=== PATIENT | female | born 1995 | race Caucasian/White ===

== ENCOUNTER 2020-05-19 10:35 | Inpatient (IN) | payer BC ==
[2020-05-19] MEDS ORDERED: Sodium Chloride 0.9% 10 ML Syringe FLUSH PRN (11:54)
[2020-05-19] MEDS ORDERED: Calcium Carbonate 500 MG Tab.Chew PO PRN (11:54)
[2020-05-19] MEDS ORDERED: Ondansetron 4 MG/2 ML SDV IV PRN (11:54)
--- NOTE | 2020-05-19 12:02 | PCM.LDHP ---
L&D History of Present Illness - General Date of Service: 05/19/20 Admit Problem/Dx: Patient Status Order with Admit Dx/Problem 05/19/20 11:55 Patient Status [ADT] Routine Admission Diagnosis/Problem Admission Diagnosis/Problem Term Source of Information: Patient History Limitations: Reports: No Limitations - History of Present Illness Introduction:: 05/19/20 Leida is a 24 yo at 41 1/7 weeks who presents today for SROM of clear fluid at home at 0915. She had a BPP yesterday that was 10/02 with a reactive NST for 12/04. Given her being 41 weeks and having minimal variability for the first part of the strip with an unfavorable cervix we sent her to OB for 50 mcg vaginal Cytotec last evening. She was monitored for 4 hours and then discharged. After SROM today at home she started mitra at 1000. She has had an uncomplicated . She is GBS positive. Other labs: RPR/HIV/hep B/C all non reactive, rubella immune, O positive blood type. Timing/Duration: Reports: minutes: (5-6) Location, : Reports: Abdomen, Pelvic Quality: Reports: Pressure Severity: Moderate Improves with: Reports: None Worsens with: Reports: None Associated Symptoms: Reports: vaginal fluid. Denies: vaginal bleeding - Related Data Allergies/Adverse Reactions: Allergies Allergy/AdvReac Type Severity Reaction Status Date / Time No Known Allergies Allergy Verified 05/18/20 16:56 Home Medications: Home Meds 168/Iron/Folic/Omega3 [One-A-Day -1 Softgel] 1 cap PO DAILY 05/18/20 [History] Past Medical History Respiratory History: Reports: Asthma [employer]TER History: Reports: : 1 Para: 0 LMP (Approximate): - Infectious Disease History Infectious Disease History: Reports: Chicken Pox, Herpes Other Infectious Disease History: cold sores - Past Surgical History Musculoskeletal Surgical History: Reports: Other (See Below) Other Musculoskeletal Surgeries/Procedures:: rotator cuff tear repair;. Rt tib/fib fx Social & Family History - Family History Family Medical History: No Pertinent Family History H&P Review of Systems - Review of Systems: Review Of Systems: See Below General: Reports: No Symptoms HEENT: Reports: No Symptoms Pulmonary: Reports: No Symptoms Cardiovascular: Reports: No Symptoms Gastrointestinal: Reports: No Symptoms Genitourinary: Reports: No Symptoms Musculoskeletal: Reports: No Symptoms Skin: Reports: No Symptoms Psychiatric: Reports: No Symptoms Neurological: Reports: No Symptoms Hematologic/Lymphatic: Reports: No Symptoms Immunologic: Reports: No Symptoms L&D Exam - Exam Exam: See Below - OB Specific Contraction Intensity: Moderate Movement: Active Heart Tones: Present Heart Rate (FHR) Variability: Moderate (6-25 bmp) Presentation: Vertex Estimated Weight: 8.5 lbs - Gerber Score Gerber Score Cervix Position: Posterior Gerber Score Consistency: Medium Gerber Score Effacement: 31-50% Gerber Score Dilation: 1-2 cm Gerber Score 's Station: -2 Gerber Score Total: 4 - Exam General: Alert, Oriented HEENT: PERRLA, Conjunctiva Clear, Hearing Intact, Mucosa Moist & [place], Normal Nasal Septum, Pupils Equal, Pupils Reactive Neck: Supple, Trachea Midline Lungs: Clear to Auscultation, Normal Respiratory Effort Cardiovascular: Regular Rate, Regular Rhythm GI/Abdominal Exam: Normal Bowel Sounds, Soft, Pelvis Stable Genitourinary: Normal external exam, Cervical dilitation, Enlarged uterus. No: Vaginal bleeding Back Exam: Normal Inspection, Full Range of Motion Extremities: Normal Inspection, Normal Range of Motion, Non-Tender, No Pedal Edema Skin: Warm, Dry, Intact Neurological: Cranial Nerves Intact, Reflexes Equal Bilateral Psychiatric: Alert, Normal Affect, Normal Mood - Patient Data Lab Results Last 24 hrs: Laboratory Results - last 24 hr 05/19/20 05/19/20 Range/Units 10:57 10:57 Urine Color Yellow (YELLOW) Urine Appearance Slightly cloudy A (CLEAR) Urine pH 7.0 (5.0-8.0) Ur Specific [place] 1.025 (1.008-1.030) Urine Protein Negative (NEGATIVE) mg/dL Urine Glucose (UA) Negative (NEGATIVE) mg/dL Urine Ketones Negative (NEGATIVE) mg/dL Urine Occult Blood Negative (NEGATIVE) Urine Nitrite Negative (NEGATIVE) Urine Bilirubin Negative (NEGATIVE) Urine Urobilinogen 0.2 (0.2-1.0) EU/dL Ur Leukocyte Esterase Negative (NEGATIVE) Urine RBC Not seen (0-5) Urine WBC 0-5 (0-5) Ur Epithelial Cells Moderate Amorphous Sediment Not seen Urine Bacteria Few Urine Mucus Many Membrane Rupture Positive H (NEGATIVE) - Problem List (1) Group B streptococcal infection SNOMED Code(s): 216499150 ICD Code: A49.1 - STREPTOCOCCAL INFECTION, UNSPECIFIED SITE Status: Acute Current Visit: Yes (2) Term SNOMED Code(s): 08214256 ICD Code: Z34.90 - ENCNTR FOR SUPRVSN OF NORMAL , UNSP, UNSP TRIMESTER Status: Acute Current Visit: Yes Problem List Initiated/Reviewed/Updated: Yes Orders Last 24hrs: Active Orders 24 hr Category Date Time Status Patient Status [ADT] Routine ADT 05/19/20 11:55 Ordered Communication Order [RC] ASDIRECTED Care 05/19/20 11:55 Ordered Heart Tones [RC] PER UNIT ROUTINE Care 05/19/20 11:55 Ordered Notify Provider Vital Signs [RC] PRN Care 05/19/20 11:55 Ordered Notify Provider [RC] PRN Care 05/19/20 11:55 Ordered OB Check [OM.PC] Click to Edit Care 05/19/20 10:41 Ordered Up ad [place]elia [RC] ASDIRECTED Care 05/19/20 11:54 Ordered VTE/DVT Education [RC] Click to Edit Care 05/19/20 11:56 Ordered Vital Signs [RC] PER UNIT ROUTINE Care 05/19/20 11:55 Ordered Regular Diet [DIET] Diet 05/19/20 Breakfast Ordered CBC W/O DIFF,HEMOGRAM [HEME] Routine Lab 05/19/20 11:54 Ordered Calcium Carbonate [Tums] Med 05/19/20 11:54 Ordered 1,000 mg PO Q2HR PRN Ondansetron [Zofran] Med 05/19/20 11:54 Ordered 4 mg IV Q4H PRN Sodium Chloride 0.9% [Saline Flush] Med 05/19/20 11:54 Ordered 10 ml FLUSH ASDIRECTED PRN miSOPROStoL [Cytotec] Med 05/19/20 12:15 Once 25 mcg PO ONETIME ONE DVT/VTE Prophylaxis Reflex [OM.PC] Routine Oth 05/19/20 11:54 Ordered Saline Lock Insert [OM.PC] Routine Oth 05/19/20 11:55 Ordered Resuscitation Status Routine Resus Stat 05/19/20 11:54 Ordered Medication Orders Calcium Carbonate/Glycine (Calcium Carbonate 500 Mg Tab.Chew) 1,000 mg PO Q2HR PRN PRN Reason: Indigestion Misoprostol (Misoprostol 25 Mcg (1/4 Of 100 Mcg) Tab) 25 mcg PO ONETIME ONE Stop: 05/19/20 12:16 Ondansetron HCl (Ondansetron 4 Mg/2 Ml Sdv) 4 mg IV Q4H PRN PRN Reason: Nausea/Vomiting Sodium Chloride (Sodium Chloride 0.9% 10 Ml Syringe) 10 ml FLUSH ASDIRECTED PRN PRN Reason: Keep Vein Open Assessment/Plan Comment:: 05/19/20 Assessment: Admit to L & D for SROM and early labor Cervix very posterior, nursing unable to reach Fluid clear at 41 1/7 with testing yesterday 12/04 GBS positive Plan: Limit cervical exams due to GBS Oral cytotec 25 mcg every two hours if needed based on monitoring strip Anticipate Nitrous oxide vs epidural Monitoring as needed with cytotec, otherwise intermittent
[2020-05-19] MEDS ORDERED: Misoprostol 25 MCG (1/4 of 100 MCG) Tab PO ONE ×2 (12:15→14:42)
[2020-05-19] MEDS ORDERED: Penicillin G Potassium 5 MILLUNITS in Sodium Chloride 0.9% 50 ML IV ONE (12:30)
--- NOTE | 2020-05-19 14:48 | PCM.PNLD ---
Labor Progress Note - VS & Meds Vital Signs: Last Vital Signs Temp 35.7 C L 05/19/20 14:30 Pulse 75 05/19/20 14:30 Resp 16 05/19/20 14:30 BP 129/77 05/19/20 14:30 Pulse Ox 98 05/19/20 14:30 Active Medications: Current Medications Calcium Carbonate/Glycine (Calcium Carbonate 500 Mg Tab.Chew) 1,000 mg PO Q2H PRN PRN Reason: Indigestion Penicillin G Potassium 2.5 (millunits/ Sodium Chloride) 50 mls @ 100 mls/hr IV Q4H JOSE Misoprostol (Misoprostol 25 Mcg (1/4 Of 100 Mcg) Tab) 25 mcg PO ONETIME ONE Stop: 05/19/20 14:43 Ondansetron HCl (Ondansetron 4 Mg/2 Ml Sdv) 4 mg IV Q4H PRN PRN Reason: Nausea/Vomiting Sodium Chloride (Sodium Chloride 0.9% 10 Ml Syringe) 10 ml FLUSH ASDIRECTED PRN PRN Reason: Keep Vein Open Discontinued Medications Penicillin G Potassium 5 (millunits/ Sodium Chloride) 50 mls @ 100 mls/hr IV ONETIME ONE Stop: 05/19/20 12:59 Last Admin: 05/19/20 12:35 Dose: 100 mls/hr Documented by: Misoprostol (Misoprostol 25 Mcg (1/4 Of 100 Mcg) Tab) 25 mcg PO ONETIME ONE Stop: 05/19/20 12:16 Last Admin: 05/19/20 12:05 Dose: 25 mcg Documented by: - Uterine Contractions Uterine Monitoring Mode: External [place] Contraction Frequency (min): 3-5 Contraction Duration (sec): 100-110 Contraction Intensity: Mild to Moderate Uterine Resting Tone: Soft - Monitoring Monitor Mode: External Ultrasound Heart Rate (FHR) Baseline: 140 Heart Rate (FHR) Variability: Moderate (6-25 bmp) (minimal at times, moderate at times) Accelerations: Present, 15x15 Decelerations: None Strip Review: Category I - Vaginal Exam Dilation (cm): 2 Effacement (Percent): 80 Station: -1 Cervical Position: Posterior Sterile Vaginal Exam Performed By: Sia Jasso - Labor Progress (Free Text) Labor Progress: 05/19/20 25 mcg cytotec given orally around noon. Contractions still spaced out every 5 minutes or so but do seem stronger to patient. SVE done and although cervix is still very posterior SVE was /-1. Clear fluid noted. Patient agrees to another 25 mcg oral cytotec to help ripen cervix and progress things. She is comfortable on the ball.
--- NOTE | 2020-05-19 16:34 | PCM.SN.2 ---
- Free Text/Narrative Note: 05/19/20 Contractions are getting stronger for the patient. She is currently in the tub which makes the contractions comfortable. No SVE done. Continue to monitor intermittently. Category 1 tracing.
[2020-05-19] MEDS: Penicillin G Potassium 2.5 MILLUNITS in Sodium Chloride 0.9% 50 ML IV SCH ×2 (16:35→19:51)
--- NOTE | 2020-05-19 19:08 | PCM.PNLD ---
Labor Progress Note - VS & Meds Vital Signs: Last Vital Signs Temp 35.7 C L 05/19/20 14:30 Pulse 86 05/19/20 16:00 Resp 16 05/19/20 14:30 BP 131/83 05/19/20 16:00 Pulse Ox 98 05/19/20 14:30 Active Medications: Current Medications Calcium Carbonate/Glycine (Calcium Carbonate 500 Mg Tab.Chew) 1,000 mg PO Q2H PRN PRN Reason: Indigestion Penicillin G Potassium 2.5 (millunits/ Sodium Chloride) 50 mls @ 100 mls/hr IV Q4H JOSE Last Admin: 05/19/20 16:35 Dose: 100 mls/hr Documented by: Ondansetron HCl (Ondansetron 4 Mg/2 Ml Sdv) 4 mg IV Q4H PRN PRN Reason: Nausea/Vomiting Sodium Chloride (Sodium Chloride 0.9% 10 Ml Syringe) 10 ml FLUSH ASDIRECTED PRN PRN Reason: Keep Vein Open Discontinued Medications Penicillin G Potassium 5 (millunits/ Sodium Chloride) 50 mls @ 100 mls/hr IV ONETIME ONE Stop: 05/19/20 12:59 Last Admin: 05/19/20 12:35 Dose: 100 mls/hr Documented by: Misoprostol (Misoprostol 25 Mcg (1/4 Of 100 Mcg) Tab) 25 mcg PO ONETIME ONE Stop: 05/19/20 12:16 Last Admin: 05/19/20 12:05 Dose: 25 mcg Documented by: Misoprostol (Misoprostol 25 Mcg (1/4 Of 100 Mcg) Tab) 25 mcg PO ONETIME ONE Stop: 05/19/20 14:43 Last Admin: 05/19/20 14:52 Dose: 25 mcg Documented by: - Uterine Contractions Uterine Monitoring Mode: External [place] Contraction Frequency (min): 3-6 Contraction Duration (sec): 90-140 Contraction Intensity: Moderate Uterine Resting Tone: Soft - Monitoring Monitor Mode: External Ultrasound Heart Rate (FHR) Baseline: 140 Heart Rate (FHR) Variability: Moderate (6-25 bmp) (minimal at times, moderate at times) Accelerations: Present, 15x15 Decelerations: None Strip Review: Category I - Vaginal Exam Dilation (cm): 3 Effacement (Percent): 80 Station: 0 Cervical Position: Posterior Sterile Vaginal Exam Performed By: Sia Jasso - Labor Progress (Free Text) Labor Progress: 05/19/20 Patient has made slow progress today but contractions are feeling stronger to her now. SVE . Contractions currently every 3-6 minutes, very strong. Risks of expectant management discussed including risk for infection the longer there is ROM. We discussed oral cytotec again and IV Pitocin titrate. Patient would like to avoid all medications if possible and we have agreed that we will recheck her cervix at 9 pm and if slow to no change again she agrees to pitocin augmentation. She is afebrile.
[2020-05-20] MEDS ORDERED: ePHEDrine 50 MG/ML SDV IVPUSH PRN (00:16)
[2020-05-20] MEDS ORDERED: Naloxone 0.4 MG/ML SDV IVPUSH PRN ×2 (00:16→08:00)
[2020-05-20] MEDS ORDERED: Sodium Chloride 0.9% 10 ML Syringe FLUSH PRN (00:16)
[2020-05-20] MEDS ORDERED: diphenhydrAMINE 50 MG/ML SDV IVPUSH PRN ×2 (00:16)
[2020-05-20] MEDS ORDERED: Sodium Chloride 0.9% 1,000 ML IV ONE (00:24)
[2020-05-20] MEDS ORDERED: Ropivacaine 100 ML ONE (00:37)
[2020-05-20] MEDS: Penicillin G Potassium 2.5 MILLUNITS in Sodium Chloride 0.9% 50 ML IV SCH ×3 (01:42→10:56)
--- NOTE | 2020-05-20 03:24 | ANES ---
DATE OF SERVICE: 05/20/2020 TIME: 39. INDICATIONS: I was called to the OB Department to evaluate Ms. [place] for a labor epidural. This is her 1st baby. She is approximately 5 cm and in active labor. Risks and benefits of the procedure were explained to the patient. She wished to proceed with labor epidural. TECHNIQUE: She was placed in a sitting position. Her back was prepped x3 with Betadine, 1% lidocaine skin local was used. The epidural was placed at L3-4 using a 17-gauge Tuohy needle in loss of resistance technique. The epidural had very good feel throughout, and the epidural space was easily identified. There was negative CSF, negative blood, and negative paresthesias noted. Therefore, catheter was threaded to 16 cm at the skin. There was negative CSF, negative blood, and negative paresthesias with the catheter. A 1.5% lidocaine with epinephrine test dose was given, and this test dose was negative. The catheter was then secured with Tegaderm and tape, and the patient was placed in a supine position. A 0.2% ropivacaine bolus of 10 mL was given. She had very good relief from the bolus, and her vital signs remained stable. Therefore 0.2% ropivacaine drip was started at 12 mL/h. The patient tolerated the procedure very nicely. Her vital signs remained stable throughout the procedure. Nurse was with me for the entire procedure. There were no anesthesia complications noted, and we will continue to monitor her throughout her labor and delivery. Lopez Thakur CRNA /[id number]
--- NOTE | 2020-05-20 04:29 | PCM.PNLD ---
Labor Progress Note - VS & Meds Vital Signs: Last Vital Signs Temp 36.7 C 05/20/20 00:30 Pulse 86 05/20/20 01:40 Resp 18 05/20/20 01:40 BP 123/70 05/20/20 01:40 Pulse Ox 97 05/20/20 01:40 Active Medications: Current Medications Calcium Carbonate/Glycine (Calcium Carbonate 500 Mg Tab.Chew) 1,000 mg PO Q2H PRN PRN Reason: Indigestion Diphenhydramine HCl (Diphenhydramine 50 Mg/Ml Sdv) 25 mg IVPUSH Q6H PRN PRN Reason: Itching Diphenhydramine HCl (Diphenhydramine 50 Mg/Ml Sdv) 50 mg IVPUSH Q6H PRN PRN Reason: Itching Ephedrine Sulfate (Ephedrine 50 Mg/Ml Sdv) 10 mg IVPUSH ASDIRECTED PRN PRN Reason: Hypotension Penicillin G Potassium 2.5 (millunits/ Sodium Chloride) 50 mls @ 100 mls/hr IV Q4H [facility] Last Admin: 05/20/20 01:42 Dose: 100 mls/hr Documented by: Oxytocin/Sodium Chloride (Pitocin In Ns 20 Units/1,000 Ml) 20 unit in 1,000 mls @ 6 mls/hr IV TITRATE [facility]; Protocol Last Titration: 05/20/20 03:00 Dose: 4 munits/min, 12 mls/hr Documented by: Naloxone HCl (Naloxone 0.4 Mg/Ml Sdv) 0.1 mg IVPUSH ASDIRECTED PRN PRN Reason: Oversedation Ondansetron HCl (Ondansetron 4 Mg/2 Ml Sdv) 4 mg IV Q4H PRN PRN Reason: Nausea/Vomiting Sodium Chloride (Sodium Chloride 0.9% 10 Ml Syringe) 10 ml FLUSH ASDIRECTED PRN PRN Reason: Keep Vein Open Sodium Chloride (Sodium Chloride 0.9% 10 Ml Syringe) 10 ml FLUSH ASDIRECTED PRN PRN Reason: Keep Vein Open Discontinued Medications Penicillin G Potassium 5 (millunits/ Sodium Chloride) 50 mls @ 100 mls/hr IV ONETIME ONE Stop: 05/19/20 12:59 Last Admin: 05/19/20 12:35 Dose: 100 mls/hr Documented by: Sodium Chloride (Normal Saline) 1,000 mls @ 999 mls/hr IV .BOLUS ONE Stop: 05/20/20 01:24 Last Admin: 05/20/20 01:43 Dose: 999 mls/hr Documented by: Ropivacaine (Naropin 0.2%) Confirm Administered Dose 100 mls @ as directed .ROUTE .STK-MED ONE Stop: 05/20/20 00:38 Misoprostol (Misoprostol 25 Mcg (1/4 Of 100 Mcg) Tab) 25 mcg PO ONETIME ONE Stop: 05/19/20 12:16 Last Admin: 05/19/20 12:05 Dose: 25 mcg Documented by: Misoprostol (Misoprostol 25 Mcg (1/4 Of 100 Mcg) Tab) 25 mcg PO ONETIME ONE Stop: 05/19/20 14:43 Last Admin: 05/19/20 14:52 Dose: 25 mcg Documented by: - Uterine Contractions Uterine Monitoring Mode: External [place] Contraction Frequency (min): 3-5 Contraction Duration (sec): 60-80 Contraction Intensity: Strong Uterine Resting Tone: Soft - Monitoring Monitor Mode: External Ultrasound Heart Rate (FHR) Baseline: 120 Heart Rate (FHR) Variability: Moderate (6-25 bmp) (minimal at times, moderate at times) Accelerations: Present, 15x15 Decelerations: None Strip Review: Category I - Vaginal Exam Dilation (cm): 7-8 Effacement (Percent): 90 Station: 0 Cervical Position: Midposition Sterile Vaginal Exam Performed By: Gabbie Bran - Labor Progress (Free Text) Labor Progress: 05/20/20 S: Patient has done wonderful laboring. Pitocin was started around 2200 to augment labor due to slow cervical change, contractions being every 4-6 minutes, and being ruptured >12 hours with GBS. She used nitrous oxide on and off for a while for pain and the tub. Around midnight she was 5 cm and requested an epidural. She has good movement of her legs and good pain control. O: SVE per nursing at 0330 7-8/90/0. Contractions are about every 5 minutes currently but are nice and strong. Category 1 tracing continues. Pitocin currently at 4 mu, will increase again as long as baby looks good to get contractions closer together. A: Patient and baby tolerating labor well. Patient remains afebrile and there are no s/s of infection. P: Anticipate . May let patient labor down some if baby tolerates it. Continue to turn and use peanut ball. Will try to get patient a nap now, she has not slept all night.
--- NOTE | 2020-05-20 07:21 | PCM.PNLD ---
Labor Progress Note - VS & Meds Vital Signs: Last Vital Signs Temp 36.2 C 05/20/20 05:30 Pulse 95 05/20/20 05:30 Resp 16 05/20/20 05:30 BP 119/76 05/20/20 05:30 Pulse Ox 98 05/20/20 05:30 Active Medications: Current Medications Calcium Carbonate/Glycine (Calcium Carbonate 500 Mg Tab.Chew) 1,000 mg PO Q2H PRN PRN Reason: Indigestion Diphenhydramine HCl (Diphenhydramine 50 Mg/Ml Sdv) 25 mg IVPUSH Q6H PRN PRN Reason: Itching Diphenhydramine HCl (Diphenhydramine 50 Mg/Ml Sdv) 50 mg IVPUSH Q6H PRN PRN Reason: Itching Ephedrine Sulfate (Ephedrine 50 Mg/Ml Sdv) 10 mg IVPUSH ASDIRECTED PRN PRN Reason: Hypotension Penicillin G Potassium 2.5 (millunits/ Sodium Chloride) 50 mls @ 100 mls/hr IV Q4H [facility] Last Admin: 05/20/20 05:48 Dose: 100 mls/hr Documented by: Oxytocin/Sodium Chloride (Pitocin In Ns 20 Units/1,000 Ml) 20 unit in 1,000 mls @ 6 mls/hr IV TITRATE [facility]; Protocol Last Titration: 05/20/20 06:00 Dose: 6 munits/min, 18 mls/hr Documented by: Naloxone HCl (Naloxone 0.4 Mg/Ml Sdv) 0.1 mg IVPUSH ASDIRECTED PRN PRN Reason: Oversedation Ondansetron HCl (Ondansetron 4 Mg/2 Ml Sdv) 4 mg IV Q4H PRN PRN Reason: Nausea/Vomiting Sodium Chloride (Sodium Chloride 0.9% 10 Ml Syringe) 10 ml FLUSH ASDIRECTED PRN PRN Reason: Keep Vein Open Discontinued Medications Penicillin G Potassium 5 (millunits/ Sodium Chloride) 50 mls @ 100 mls/hr IV ONETIME ONE Stop: 05/19/20 12:59 Last Admin: 05/19/20 12:35 Dose: 100 mls/hr Documented by: Sodium Chloride (Normal Saline) 1,000 mls @ 999 mls/hr IV .BOLUS ONE Stop: 05/20/20 01:24 Last Admin: 05/20/20 01:43 Dose: 999 mls/hr Documented by: Ropivacaine (Naropin 0.2%) Confirm Administered Dose 100 mls @ as directed .ROUTE .STK-MED ONE Stop: 05/20/20 00:38 Misoprostol (Misoprostol 25 Mcg (1/4 Of 100 Mcg) Tab) 25 mcg PO ONETIME ONE Stop: 05/19/20 12:16 Last Admin: 05/19/20 12:05 Dose: 25 mcg Documented by: Misoprostol (Misoprostol 25 Mcg (1/4 Of 100 Mcg) Tab) 25 mcg PO ONETIME ONE Stop: 05/19/20 14:43 Last Admin: 05/19/20 14:52 Dose: 25 mcg Documented by: Sodium Chloride (Sodium Chloride 0.9% 10 Ml Syringe) 10 ml FLUSH ASDIRECTED PRN PRN Reason: Keep Vein Open - Uterine Contractions Uterine Monitoring Mode: External [place] Contraction Frequency (min): 60-80 Contraction Duration (sec): 3-5 Contraction Intensity: Moderate Uterine Resting Tone: Soft - Monitoring Monitor Mode: External Ultrasound Heart Rate (FHR) Baseline: 120 Heart Rate (FHR) Variability: Moderate (6-25 bmp) (minimal at times, moderate at times) Accelerations: Present, 15x15 Decelerations: None Strip Review: Category I - Vaginal Exam Dilation (cm): Rim 9.5 Effacement (Percent): 100 Station: 1 Cervical Position: Anterior Sterile Vaginal Exam Performed By: Sia Jasso - Labor Progress (Free Text) Labor Progress: 05/20/20 Labor progressing slowly. Category 1 tracing although baby is minimal for short times without decelerations, likely sleepy periods. 250 ml fluid bolus now and patient is sipping on juice. Rolling side to side with peanut ball. Going up on pitocin by 1 mu when able depending on variability of baby and overall reactivity of strip. SVE 9.5/100/+1.
[2020-05-20] MEDS ORDERED: Sodium Chloride 0.9% 250 ML IV ONE (07:30)
[2020-05-20] MEDS ORDERED: Sodium Chloride 0.9% 250 ML IV SCH (07:30)
[2020-05-20] MEDS ORDERED: Ropivacaine 100 ML EPIDUR SCH ×2 (08:00)
[2020-05-20] MEDS ORDERED: Misoprostol 200 MCG Tab ONE (09:48)
[2020-05-20] MEDS ORDERED: Methylergonovine 0.2 MG/1 ML Amp ONE ×2 (09:49→09:50)
[2020-05-20] MEDS ORDERED: Carboprost Tromethamine 250 MCG/1 ML Amp ONE (09:50)
[2020-05-20] MEDS ORDERED: Lidocaine 1% 50 ML MDV ONE (10:00)
[2020-05-20] MEDS ORDERED: Ibuprofen 200 MG Tab, 24 Tab Bulk Bottle PO PRN (10:12)
[2020-05-20] MEDS ORDERED: Acetaminophen 325 MG Tab, 50 Tab Bulk Bottle PO PRN (10:12)
[2020-05-20] MEDS ORDERED: Misoprostol 200 MCG Tab RECTAL STA (10:17)
[2020-05-20] MEDS ORDERED: Methylergonovine 0.2 MG/1 ML Amp IM STA (10:18)
[2020-05-20] MEDS ORDERED: Carboprost Tromethamine 250 MCG/1 ML Amp IM ONE (10:18)
[2020-05-20] MEDS ORDERED: Lidocaine 1% 50 ML MDV INJECT STA (10:19)
[2020-05-20] MEDS: Misoprostol 200 MCG Tab ONE ×2 (10:56→11:00)
--- NOTE | 2020-05-20 12:54 | PCM.DEL ---
L & D Note - General Info Date of Service: 05/20/20 Mother's Due Date: 05/11/20 - Delivery Note Labor: Augmented by Oxytocin Cervical Ripening Method: Misoprostil Delivery Outcome: Livebirth Infant Delivery Method: Spontaneous Vaginal Delivery-Single Delivery Mode: Spontaneous Presentation: Right Occiput Anterior (KAVON) Nuchal Cord: Present (tight, delivered summersault) Anesthesia Type: Epidural, Nitrous Oxide Anesthetic: Lidocaine (Xylocaine) 1% Plain Local Anesthetic Volume: 5cc Amniotic Fluid Description: Clear Episiotomy Type: Midline Laceration: None. No: Cervical, Vaginal Suture type: Vicryl Suture size: 3-0 Placenta: Intact, Spontaneous Cord: 3 Vessels Estimated Blood Loss: 700 Resuscitation Needed: No [place]: Stimulated Provider: Sia Jasso Score 1 min: 9 Score 5 min: 10 Post Delivery Events: Hemorrhage Second Stage Interventions: Reports: Second Nurse Assessed Progress of Descent, Second Nurse Reviewed Contraction Pattern, Second Nurse Reviewed Heart Tones, Encouragement Given, Laboring Down, Pushing Effectively, Pushing, Feet in Foot Rests, Pushing, Knee Chest Position, Pushing, Left Side, Pushing, McRobert's Position, Pushing, Pulls Own Legs Back, Pushing, Right Side Delivery Comments (Free Text/Narrative):: 05/20/20 24 yo G1 now P1 delivered viable male infant at 0944 this morning. She was given vaginal cytotec 05/18/20 50 mcg one dose and sent home. She had SROM of clear fluid at home yesterday at 0915. She was mitra on her own but they were not strong. She was given two doses of oral cytotec for ripening. She made slow progress and was given some oxytocin to augment labor around 2200 last evening. She recieved an epidural, she had used nitrous oxide and the tub before that. Category 1 tracing through out other than decelerations with pushing that returned to baseline. After pushing for nearly two hours she had baby crowned but could not push past her restrictive perineum and heart tones were non reassuring. She agreed to an episiotomy and a midline was cut, this did not extend. Two contractions later she delivered a head. There was a night nuchal cord and he was delivered summersaulted through, unable to reduce. He cried spontaneously and was placed on mothers chest. Apgars 9, 10. She began bleeding quite heavy right after delivery. Placenta was delivered intact spontaneously, 3 vessel cord, but fundus remained boggy and bleeding was heavy. Pitocin IV done and fundal massage along with straight urinary catheter to empty bladder. Upon inspection the bleeding was certainly uterine and not from any tears so a few clots were removed from the cervix and then rectal Cytotec was given. Bleeding continued and so Methergine IM was given. Again, bleeding was continuing and so several minutes later Hemabate was given. She continued to be somewhat boggy but firms nicely with massage, bleeding stopped. FF now with light bleeding. No vaginal or cervical lacerations. Episiotomy was repaired with 3-0 and 4-0 vicryl. Baby boy skin to skin with mom, delayed cord clamping for 1 minute. Both mom and baby are in stable condition. EBL 700 ml. Stages of labor: 1: 2545-6368 2: 4335-7936 3: 6064-3208 Induction Criteria - Augmentation Estimated Pelvis: Reports: Adequate Weight Estimated:: Reports: AGA Estimated Weight if LGA: 240.971 g Reassuring Monitoring Strip: Yes Absence of Tachy Systole: Yes - General Info Date of Service: 05/20/20 Functional Status: Reports: Pain Controlled - Review of Systems General: Reports: Fatigue HEENT: Reports: No Symptoms Pulmonary: Reports: No Symptoms Cardiovascular: Reports: No Symptoms Gastrointestinal: Reports: No Symptoms Genitourinary: Reports: No Symptoms Musculoskeletal: Reports: No Symptoms Skin: Reports: No Symptoms Neurological: Reports: No Symptoms Psychiatric: Reports: No Symptoms - Patient Data Vitals - Most Recent: Last Vital Signs Temp 35.7 C L 05/20/20 11:58 Pulse 87 05/20/20 11:58 Resp 18 05/20/20 11:58 BP 137/82 05/20/20 11:58 Pulse Ox 99 05/20/20 11:58 Weight - Most Recent: 93.44 kg I&O - Last 24 Hours: Intake & Output 05/19/20 05/20/20 05/20/20 22:59 06:59 14:59 Intake Total 50 Output Total 850 Balance 50 -850 Lab Results Last 24 Hours: Laboratory Results - last 24 hr 05/19/20 Range/Units 18:05 SARS CoV-2 RNA Rapid BESSY Negative Med Orders - Current: Current Medications Acetaminophen (Acetaminophen 325 Mg Tab, 50 Tab Bulk Bottle) 325 - 650 mg PO Q4H PRN PRN Reason: Pain Last Admin: 05/20/20 10:52 Dose: 650 mg Documented by: Calcium Carbonate/Glycine (Calcium Carbonate 500 Mg Tab.Chew) 1,000 mg PO Q2H PRN PRN Reason: Indigestion Diphenhydramine HCl (Diphenhydramine 50 Mg/Ml Sdv) 25 mg IVPUSH Q6H PRN PRN Reason: Itching Diphenhydramine HCl (Diphenhydramine 50 Mg/Ml Sdv) 50 mg IVPUSH Q6H PRN PRN Reason: Itching Ephedrine Sulfate (Ephedrine 50 Mg/Ml Sdv) 10 mg IVPUSH ASDIRECTED PRN PRN Reason: Hypotension Oxytocin/Sodium Chloride (Pitocin In Ns 20 Units/1,000 Ml) 20 unit in 1,000 mls @ 6 mls/hr IV TITRATE JOSE; Protocol Last Titration: 05/20/20 08:12 Dose: 7 munits/min, 21 mls/hr Documented by: Ropivacaine (Naropin 0.2%) 100 mls @ 12 mls/hr EPIDUR ASDIRECTED JOSE; Protocol Last Admin: 05/20/20 08:08 Dose: 12 mls/hr, 12 mls/hr Documented by: Oxytocin/Sodium Chloride (Pitocin In Ns 20 Units/1,000 Ml) 20 unit in 1,000 mls @ 999 mls/hr IV TITRATE JOSE; Protocol Ibuprofen (Ibuprofen 200 Mg Tab, 24 Tab Bulk Bottle) 600 mg PO Q6H PRN PRN Reason: Pain Last Admin: 05/20/20 10:51 Dose: 600 mg Documented by: Naloxone HCl (Naloxone 0.4 Mg/Ml Sdv) 0.1 mg IVPUSH ASDIRECTED PRN PRN Reason: Oversedation Naloxone HCl (Naloxone 0.4 Mg/Ml Sdv) 0.1 mg IVPUSH Q5M PRN PRN Reason: IF RESP RATE LESS THAN 6 Ondansetron HCl (Ondansetron 4 Mg/2 Ml Sdv) 4 mg IV Q4H PRN PRN Reason: Nausea/Vomiting Sodium Chloride (Sodium Chloride 0.9% 10 Ml Syringe) 10 ml FLUSH ASDIRECTED PRN PRN Reason: Keep Vein Open Discontinued Medications Carboprost Tromethamine (Carboprost Tromethamine 250 Mcg/1 Ml Amp) Confirm Administered Dose 250 mcg .ROUTE .STK-MED ONE Stop: 05/20/20 09:51 Last Admin: 05/20/20 10:59 Dose: Not Given Documented by: Carboprost Tromethamine (Carboprost Tromethamine 250 Mcg/1 Ml Amp) 250 mcg IM ONETIME ONE Stop: 05/20/20 10:19 Last Admin: 05/20/20 09:55 Dose: 250 mcg Documented by: Penicillin G Potassium 5 (millunits/ Sodium Chloride) 50 mls @ 100 mls/hr IV ONETIME ONE Stop: 05/19/20 12:59 Last Admin: 05/19/20 12:35 Dose: 100 mls/hr Documented by: Penicillin G Potassium 2.5 (millunits/ Sodium Chloride) 50 mls @ 100 mls/hr IV Q4H JOSE Stop: 05/20/20 12:00 Last Admin: 05/20/20 10:56 Dose: Not Given Documented by: Sodium Chloride (Normal Saline) 1,000 mls @ 999 mls/hr IV .BOLUS ONE Stop: 05/20/20 01:24 Last Admin: 05/20/20 01:43 Dose: 999 mls/hr Documented by: Ropivacaine (Naropin 0.2%) Confirm Administered Dose 100 mls @ as directed .ROUTE .STK-MED ONE Stop: 05/20/20 00:38 Sodium Chloride (Normal Saline) 250 mls @ 250 mls/hr IV ASDIRECTED JOSE Sodium Chloride (Normal Saline) 250 mls @ 999 mls/hr IV ASDIRECTED ONE Stop: 05/20/20 07:45 Lidocaine HCl (Lidocaine 1% 50 Ml Mdv) Confirm Administered Dose 50 ml .ROUTE .STK-MED ONE Stop: 05/20/20 10:01 Last Admin: 05/20/20 11:00 Dose: Not Given Documented by: Lidocaine HCl (Lidocaine 1% 50 Ml Mdv) 50 ml INJECT NOW STA Stop: 05/20/20 10:20 Last Admin: 05/20/20 11:00 Dose: 50 ml Documented by: Methylergonovine Maleate (Methylergonovine 0.2 Mg/1 Ml Amp) Confirm Administered Dose 0.2 mg .ROUTE .STK-MED ONE Stop: 05/20/20 09:50 Last Admin: 05/20/20 10:59 Dose: Not Given Documented by: Methylergonovine Maleate (Methylergonovine 0.2 Mg/1 Ml Amp) Confirm Administered Dose 0.2 mg .ROUTE .STK-MED ONE Stop: 05/20/20 09:51 Last Admin: 05/20/20 10:59 Dose: Not Given Documented by: Methylergonovine Maleate (Methylergonovine 0.2 Mg/1 Ml Amp) 0.2 mg IM NOW STA Stop: 05/20/20 10:19 Last Admin: 05/20/20 09:51 Dose: 0.2 mg Documented by: Misoprostol (Misoprostol 25 Mcg (1/4 Of 100 Mcg) Tab) 25 mcg PO ONETIME ONE Stop: 05/19/20 12:16 Last Admin: 05/19/20 12:05 Dose: 25 mcg Documented by: Misoprostol (Misoprostol 25 Mcg (1/4 Of 100 Mcg) Tab) 25 mcg PO ONETIME ONE Stop: 05/19/20 14:43 Last Admin: 05/19/20 14:52 Dose: 25 mcg Documented by: Misoprostol (Misoprostol 200 Mcg Tab) Confirm Administered Dose 200 mcg .ROUTE .STK-MED ONE Stop: 05/20/20 09:49 Last Admin: 05/20/20 10:59 Dose: Not Given Documented by: Misoprostol (Misoprostol 200 Mcg Tab) Confirm Administered Dose 800 mcg .ROUTE .STK-MED ONE Stop: 05/20/20 09:51 Last Admin: 05/20/20 11:00 Dose: Not Given Documented by: Misoprostol (Misoprostol 200 Mcg Tab) 800 mcg RECTAL NOW STA Stop: 05/20/20 10:18 Last Admin: 05/20/20 11:00 Dose: 800 mcg Documented by: Sodium Chloride (Sodium Chloride 0.9% 10 Ml Syringe) 10 ml FLUSH ASDIRECTED PRN PRN Reason: Keep Vein Open - Exam General: Alert, Oriented HEENT: Pupils Equal, Pupils Reactive, Mucous Membr. Moist/[place] Neck: Supple Lungs: Clear to Auscultation, Normal Respiratory Effort Cardiovascular: Regular Rate, Regular Rhythm. No: Murmurs GI/Abdominal Exam: Normal Bowel Sounds, Soft, Non-Tender, No Organomegaly, No Distention, No Abnormal Bruit, No Mass, Pelvis Stable (Female) Exam: Normal External Exam, Normal Bimanual Exam, Cervical Dilata tion, Enlarged Uterus, Vaginal Bleeding Back Exam: Normal Inspection, Full Range of Motion Extremities: Normal Inspection, Normal Range of Motion, Non-Tender, No Pedal Edema, Normal Capillary Refill Skin: Warm, Dry, Intact Neurological: No New Focal Deficit Psy/Mental Status: Alert, Normal Affect, Normal Mood - Problem List & Annotations (1) Group B streptococcal infection SNOMED Code(s): 712661152 Code(s): A49.1 - STREPTOCOCCAL INFECTION, UNSPECIFIED SITE Status: Acute Current Visit: Yes (2) Term SNOMED Code(s): 00700452 Code(s): Z34.90 - ENCNTR FOR SUPRVSN OF NORMAL , UNSP, UNSP TRIMESTER Status: Acute Current Visit: Yes (3) History of episiotomy SNOMED Code(s): 877328748 Code(s): Z98.890 - OTHER SPECIFIED POSTPROCEDURAL STATES Status: Acute Current Visit: Yes (4) Del w/ 2 deg lac-unsp SNOMED Code(s): 1231975 Code(s): O70.1 - SECOND DEGREE PERINEAL LACERATION DURING DELIVERY Status: Acute Current Visit: Yes (5) Normal vaginal delivery SNOMED Code(s): 33236453, 087939146 Code(s): O80 - ENCOUNTER FOR FULL-TERM UNCOMPLICATED DELIVERY Status: Acute Current Visit: Yes (6) started SNOMED Code(s): 663315788 Code(s): KUU8655 - Status: Acute Current Visit: Yes - Problem List Review Problem List Initiated/Reviewed/Updated: Yes - My Orders Last 24 Hours: My Active Orders 05/19/20 11:54 Up ad [place] [RC] ASDIRECTED Calcium Carbonate [Tums] 1,000 mg PO Q2H PRN Ondansetron [Zofran] 4 mg IV Q4H PRN Sodium Chloride 0.9% [Saline Flush] 10 ml FLUSH ASDIRECTED PRN DVT/VTE Prophylaxis Reflex [OM.PC] Routine Resuscitation Status Routine 05/19/20 11:55 Patient Status [ADT] Routine Communication Order [RC] ASDIRECTED Heart Tones [RC] PER UNIT ROUTINE Notify Provider Vital Signs [RC] PRN Notify Provider [RC] PRN Vital Signs [RC] PER UNIT ROUTINE Saline Lock Insert [OM.PC] Routine 05/19/20 11:56 VTE/DVT Education [RC] Click to Edit 05/19/20 20:15 Oxytocin/Normal Saline [Pitocin in NS 20 Units/1,000 ML] 20 unit in 1,000 ml IV TITRATE 05/19/20 21:44 Nitrous Oxide Delivery [RC] ASDIRECTED 05/20/20 00:16 Naloxone [Narcan] 0.1 mg IVPUSH ASDIRECTED PRN diphenhydrAMINE [Benadryl] 25 mg IVPUSH Q6H PRN diphenhydrAMINE [Benadryl] 50 mg IVPUSH Q6H PRN ePHEDrine [ePHEDrine sulfate] 10 mg IVPUSH ASDIRECTED PRN 05/20/20 00:18 Communication Order [RC] ROUTINE Communication Order [RC] ROUTINE Communication Order [RC] ROUTINE Oxygen Therapy [RC] ASDIRECTED PCEA Epidural [RC] ASDIRECTED Peripheral IV Care [RC] . DIRECTED Pulse Oximetry [RC] ASDIRECTED Epidural Catheter Management [OM.PC] Routine Peripheral IV Insertion Pediatric [OM.PC] Routine 05/20/20 08:00 Naloxone [Narcan] 0.1 mg IVPUSH Q5M PRN 05/20/20 10:12 Acetaminophen [Tylenol Bulk Bottle] 325 - 650 mg PO Q4H PRN Ibuprofen [Motrin Bulk Bottle] 600 mg PO Q6H PRN 05/20/20 12:00 Oxytocin/Normal Saline [Pitocin in NS 20 Units/1,000 ML] 20 unit in 1,000 ml IV TITRATE - Assessment Assessment:: 05/20/20 with of male infant at 0944 2nd degree episiotomy repaired, no extension PP hemorrhage of EBL 700 AVSS, not dizzy Up and moving, voided - Plan Plan:: 05/19/20 Assessment: Admit to L & D for SROM and early labor Cervix very posterior, nursing unable to reach Fluid clear at 41 1/7 with testing yesterday 12/04 GBS positive Plan: Limit cervical exams due to GBS Oral cytotec 25 mcg every two hours if needed based on monitoring strip Anticipate Nitrous oxide vs epidural Monitoring as needed with cytotec, otherwise intermittent 05/20/20 Routine cares support Anticipate 48 hour stay
[2020-05-20] MEDS ORDERED: Docusate Sodium 100 MG Cap PO PRN (13:03)
[2020-05-20] MEDS ORDERED: Benzocaine 20% Top Spray 56 GM Bottle TOP ONE (13:03)
[2020-05-20] MEDS ORDERED: Witch Hazel Medicated Pads 100/Jar TOP ONE (13:03)
[2020-05-20] MEDS ORDERED: Lanolin 100% Cream 40 GM Tube TOP PRN (13:03)
[2020-05-20] MEDS ORDERED: Witch Hazel Medicated Pads 100/Jar TOP PRN (14:00)
[2020-05-20] MEDS ORDERED: Benzocaine 20% Top Spray 56 GM Bottle TOP PRN (17:00)
--- NOTE | 2020-05-21 08:50 | PCM.PNPP ---
- General Info Date of Service: 05/21/20 Functional Status: Reports: Pain Controlled - Review of Systems General: Reports: Fatigue. Denies: Fever, Weakness HEENT: Reports: No Symptoms Pulmonary: Reports: No Symptoms Cardiovascular: Reports: No Symptoms Gastrointestinal: Reports: No Symptoms Genitourinary: Reports: No Symptoms Musculoskeletal: Reports: No Symptoms Skin: Reports: No Symptoms Neurological: Reports: No Symptoms Psychiatric: Reports: No Symptoms - General Info Date of Service: 05/21/20 - Patient Data Vital Signs - Most Recent: Last Vital Signs Temp 35.2 C L 05/21/20 07:49 Pulse 83 05/21/20 07:49 Resp 18 05/21/20 07:49 BP 112/65 05/21/20 07:49 Pulse Ox 99 05/21/20 07:49 Weight - Most Recent: 93.44 kg I&O - Last 24 Hours: Intake & Output 05/20/20 05/21/20 05/21/20 22:59 06:59 14:59 Intake Total 1500 Balance 1500 Lab Results - Last 24 Hours: Laboratory Results - last 24 hr 05/20/20 05/21/20 Range/Units 16:43 07:22 WBC 23.6 H 15.4 H (4.5-11.0) K/uL RBC 3.39 3.16 L (3.30-5.50) M/uL Hgb 10.4 L D 9.5 L (12.0-15.0) g/dL Hct 31.3 L 29.8 L (36.0-48.0) % MCV 92 94 (80-98) fL MCH 31 30 (27-31) pg MCHC 33 32 (32-36) % Plt Count 214 199 (150-400) K/uL Neut % (Auto) 87 H (36-66) % Lymph % (Auto) 7 L (24-44) % [place] % (Auto) 6 (2-6) % Eos % (Auto) 0 L (2-4) % Baso % (Auto) 0 (0-1) % Med Orders - Current: Current Medications Acetaminophen (Acetaminophen 325 Mg Tab, 50 Tab Bulk Bottle) 325 - 650 mg PO Q4H PRN PRN Reason: Pain Last Admin: 05/20/20 10:52 Dose: 650 mg Documented by: Benzocaine (Benzocaine 20% Top [place] 56 Gm Bottle) 0 gm TOP Q4H PRN PRN Reason: PAIN Calcium Carbonate/Glycine (Calcium Carbonate 500 Mg Tab.Chew) 1,000 mg PO Q2H PRN PRN Reason: Indigestion Diphenhydramine HCl (Diphenhydramine 50 Mg/Ml Sdv) 25 mg IVPUSH Q6H PRN PRN Reason: Itching Diphenhydramine HCl (Diphenhydramine 50 Mg/Ml Sdv) 50 mg IVPUSH Q6H PRN PRN Reason: Itching Docusate Sodium (Docusate Sodium 100 Mg Cap) 100 mg PO BID PRN PRN Reason: Constipation Emollient Ointment (Lanolin 100% Cream 40 Gm Tube) 0 gm TOP ASDIRECTED PRN PRN Reason: Other Ephedrine Sulfate (Ephedrine 50 Mg/Ml Sdv) 10 mg IVPUSH ASDIRECTED PRN PRN Reason: Hypotension Oxytocin/Sodium Chloride (Pitocin In Ns 20 Units/1,000 Ml) 20 unit in 1,000 mls @ 6 mls/hr IV TITRATE JOSE; Protocol Last Titration: 05/20/20 08:12 Dose: 7 munits/min, 21 mls/hr Documented by: Ropivacaine (Naropin 0.2%) 100 mls @ 12 mls/hr EPIDUR ASDIRECTED JOSE; Protocol Last Admin: 05/20/20 08:08 Dose: 12 mls/hr, 12 mls/hr Documented by: Oxytocin/Sodium Chloride (Pitocin In Ns 20 Units/1,000 Ml) 20 unit in 1,000 mls @ 999 mls/hr IV TITRATE JOSE; Protocol Last Admin: 05/20/20 09:50 Dose: 999 mls/hr, 999 mls/hr Documented by: Ibuprofen (Ibuprofen 200 Mg Tab, 24 Tab Bulk Bottle) 600 mg PO Q6H PRN PRN Reason: Pain Last Admin: 05/20/20 10:51 Dose: 600 mg Documented by: Naloxone HCl (Naloxone 0.4 Mg/Ml Sdv) 0.1 mg IVPUSH Q5M PRN PRN Reason: IF RESP RATE LESS THAN 6 Ondansetron HCl (Ondansetron 4 Mg/2 Ml Sdv) 4 mg IV Q4H PRN PRN Reason: Nausea/Vomiting Sodium Chloride (Sodium Chloride 0.9% 10 Ml Syringe) 10 ml FLUSH ASDIRECTED PRN PRN Reason: Keep Vein Open Witch Kenny (Witch Kenny Medicated Pads 100/Jar) 1 pad TOP ASDIRECTED PRN PRN Reason: PAIN Discontinued Medications Benzocaine (Benzocaine 20% Top [place] 56 Gm Bottle) 0 gm TOP ONETIME ONE Stop: 05/20/20 13:04 Last Admin: 05/20/20 14:12 Dose: 1 spr Documented by: Carboprost Tromethamine (Carboprost Tromethamine 250 Mcg/1 Ml Amp) Confirm Administered Dose 250 mcg .ROUTE .STK-MED ONE Stop: 05/20/20 09:51 Last Admin: 05/20/20 10:59 Dose: Not Given Documented by: Carboprost Tromethamine (Carboprost Tromethamine 250 Mcg/1 Ml Amp) 250 mcg IM ONETIME ONE Stop: 05/20/20 10:19 Last Admin: 05/20/20 09:55 Dose: 250 mcg Documented by: Penicillin G Potassium 5 (millunits/ Sodium Chloride) 50 mls @ 100 mls/hr IV ONETIME ONE Stop: 05/19/20 12:59 Last Admin: 05/19/20 12:35 Dose: 100 mls/hr Documented by: Penicillin G Potassium 2.5 (millunits/ Sodium Chloride) 50 mls @ 100 mls/hr IV Q4H JOSE Stop: 05/20/20 12:00 Last Admin: 05/20/20 10:56 Dose: Not Given Documented by: Sodium Chloride (Normal Saline) 1,000 mls @ 999 mls/hr IV .BOLUS ONE Stop: 05/20/20 01:24 Last Admin: 05/20/20 01:43 Dose: 999 mls/hr Documented by: Ropivacaine (Naropin 0.2%) Confirm Administered Dose 100 mls @ as directed .ROUTE .STK-MED ONE Stop: 05/20/20 00:38 Sodium Chloride (Normal Saline) 250 mls @ 250 mls/hr IV ASDIRECTED JOSE Sodium Chloride (Normal Saline) 250 mls @ 999 mls/hr IV ASDIRECTED ONE Stop: 05/20/20 07:45 Last Admin: 05/20/20 07:15 Dose: 999 mls/hr Documented by: Lidocaine HCl (Lidocaine 1% 50 Ml Mdv) Confirm Administered Dose 50 ml .ROUTE .STK-MED ONE Stop: 05/20/20 10:01 Last Admin: 05/20/20 11:00 Dose: Not Given Documented by: Lidocaine HCl (Lidocaine 1% 50 Ml Mdv) 50 ml INJECT NOW STA Stop: 05/20/20 10:20 Last Admin: 05/20/20 11:00 Dose: 50 ml Documented by: Methylergonovine Maleate (Methylergonovine 0.2 Mg/1 Ml Amp) Confirm Administered Dose 0.2 mg .ROUTE .STK-MED ONE Stop: 05/20/20 09:50 Last Admin: 05/20/20 10:59 Dose: Not Given Documented by: Methylergonovine Maleate (Methylergonovine 0.2 Mg/1 Ml Amp) Confirm Administered Dose 0.2 mg .ROUTE .STK-MED ONE Stop: 05/20/20 09:51 Last Admin: 05/20/20 10:59 Dose: Not Given Documented by: Methylergonovine Maleate (Methylergonovine 0.2 Mg/1 Ml Amp) 0.2 mg IM NOW STA Stop: 05/20/20 10:19 Last Admin: 05/20/20 09:51 Dose: 0.2 mg Documented by: Misoprostol (Misoprostol 25 Mcg (1/4 Of 100 Mcg) Tab) 25 mcg PO ONETIME ONE Stop: 05/19/20 12:16 Last Admin: 05/19/20 12:05 Dose: 25 mcg Documented by: Misoprostol (Misoprostol 25 Mcg (1/4 Of 100 Mcg) Tab) 25 mcg PO ONETIME ONE Stop: 05/19/20 14:43 Last Admin: 05/19/20 14:52 Dose: 25 mcg Documented by: Misoprostol (Misoprostol 200 Mcg Tab) Confirm Administered Dose 200 mcg .ROUTE .STK-MED ONE Stop: 05/20/20 09:49 Last Admin: 05/20/20 10:59 Dose: Not Given Documented by: Misoprostol (Misoprostol 200 Mcg Tab) Confirm Administered Dose 800 mcg .ROUTE .STK-MED ONE Stop: 05/20/20 09:51 Last Admin: 05/20/20 11:00 Dose: Not Given Documented by: Misoprostol (Misoprostol 200 Mcg Tab) 800 mcg RECTAL NOW STA Stop: 05/20/20 10:18 Last Admin: 05/20/20 11:00 Dose: 800 mcg Documented by: Naloxone HCl (Naloxone 0.4 Mg/Ml Sdv) 0.1 mg IVPUSH ASDIRECTED PRN PRN Reason: Oversedation Sodium Chloride (Sodium Chloride 0.9% 10 Ml Syringe) 10 ml FLUSH ASDIRECTED PRN PRN Reason: Keep Vein Open Witch Kenny (Witch Kenny Medicated Pads 100/Jar) 1 pad TOP ONETIME ONE Stop: 05/20/20 13:04 Last Admin: 05/20/20 14:12 Dose: 1 pad Documented by: - Interaction Infant Disposition, : [place] in Room with Family Infant Interaction: Holding Infant Feeding: Breastfed Infant; Nursed Well Support Person: - Recovery Exam Fundal Tone: Firm Fundal Level: At Umbilicus Fundal Placement: Midline Lochia Amount: Small, Moderate Lochia Color: Rubra/Red Perineum Description: Edematous Episiotomy/Laceration: Approximated Bladder Status: Nonpalpable Urinary Elimination: Voided - Exam General: Alert, Oriented HEENT: Pupils Equal, Pupils Reactive, Mucous Membr. Moist/[place] Neck: Supple Lungs: Clear to Auscultation, Normal Respiratory Effort Cardiovascular: Regular Rate, Regular Rhythm GI/Abdominal Exam: Normal Bowel Sounds, Soft, Non-Tender, Pelvis Stable Extremities: Normal Inspection, Normal Range of Motion, Non-Tender, No Pedal Edema, Normal Capillary Refill Skin: Warm, Dry, Intact Neurological: No New Focal Deficit Psy/Mental Status: Alert, Normal Affect, Normal Mood - Problem List & Annotations (1) Group B streptococcal infection SNOMED Code(s): 477940788 Code(s): A49.1 - STREPTOCOCCAL INFECTION, UNSPECIFIED SITE Status: Acute Current Visit: Yes (2) Term SNOMED Code(s): 96088622 Code(s): Z34.90 - ENCNTR FOR SUPRVSN OF NORMAL , UNSP, UNSP TRIMESTER Status: Acute Current Visit: Yes (3) History of episiotomy SNOMED Code(s): 790284944 Code(s): Z98.890 - OTHER SPECIFIED POSTPROCEDURAL STATES Status: Acute Current Visit: Yes (4) Del w/ 2 deg lac-unsp SNOMED Code(s): 4953464 Code(s): O70.1 - SECOND DEGREE PERINEAL LACERATION DURING DELIVERY Status: Acute Current Visit: Yes (5) Normal vaginal delivery SNOMED Code(s): 82432708, 956047248 Code(s): O80 - ENCOUNTER FOR FULL-TERM UNCOMPLICATED DELIVERY Status: Acute Current Visit: Yes (6) started SNOMED Code(s): 387383556 Code(s): KBX3557 - Status: Acute Current Visit: Yes - Problem List Review Problem List Initiated/Reviewed/Updated: Yes - My Orders Last 24 Hours: My Active Orders 05/20/20 08:00 Naloxone [Narcan] 0.1 mg IVPUSH Q5M PRN 05/20/20 10:12 Acetaminophen [Tylenol Bulk Bottle] 325 - 650 mg PO Q4H PRN Ibuprofen [Motrin Bulk Bottle] 600 mg PO Q6H PRN 05/20/20 12:00 Oxytocin/Normal Saline [Pitocin in NS 20 Units/1,000 ML] 20 unit in 1,000 ml IV TITRATE 05/20/20 13:03 Patient Status [ADT] Routine Consult to Linoleum Floor Layer [CONS] Routine Docusate Sodium [Colace] 100 mg PO BID PRN Lanolin [Lansinoh HPA] 0 gm TOP ASDIRECTED PRN Assess Lochia [WOMSER] Per Unit Routine Assess Uterine Involution [WOMSER] Per Unit Routine 05/20/20 13:04 Ice Therapy [OM.PC] Per Unit Routine Perineal Care [OM.PC] Per Unit Routine Sitz Bath [OM.PC] Per Unit Routine 05/20/20 14:00 witch Kenny [Tucks] 1 pad TOP ASDIRECTED PRN 05/20/20 17:00 Benzocaine [[id number] 20% [place]] 0 gm TOP Q4H PRN 05/21/20 17:00 Ferrous Sulfate 325 mg PO BIDMEALS - Assessment Assessment:: 05/20/20 with of male infant at 0944 2nd degree episiotomy repaired, no extension PP hemorrhage of EBL 700 AVSS, not dizzy Up and moving, voided 05/21/20 PP day 1, doing well Bleeding is light and FF Pain controlled, perineal pain "not bad" Voiding without problems Declines dizziness or lightheadedness AVSS Hbg 10.4 yesterday afternoon and 9.4 this morning WBC elevated yesterday after delivery but are back down this morning to normal range for PP well - Plan Plan:: 05/19/20 Assessment: Admit to L & D for SROM and early labor Cervix very posterior, nursing unable to reach Fluid clear at 41 1/7 with testing yesterday 12/04 GBS positive Plan: Limit cervical exams due to GBS Oral cytotec 25 mcg every two hours if needed based on monitoring strip Anticipate Nitrous oxide vs epidural Monitoring as needed with cytotec, otherwise intermittent 05/20/20 Routine cares support Anticipate 48 hour stay 05/21/20 Routine cares Perineal care support Anticipate discharge tomorrow
[2020-05-21] MEDS ORDERED: Ferrous Sulfate 325 MG Tab PO SCH (17:00)
--- NOTE | 2020-05-22 08:26 | PCM.PNPP ---
- General Info Date of Service: 05/22/20 Functional Status: Reports: Pain Controlled, Tolerating Diet, Ambulating, Urinating - Review of Systems General: Reports: No Symptoms HEENT: Reports: No Symptoms Pulmonary: Reports: No Symptoms Cardiovascular: Reports: No Symptoms Gastrointestinal: Reports: No Symptoms Genitourinary: Reports: No Symptoms Musculoskeletal: Reports: No Symptoms Skin: Reports: No Symptoms Neurological: Reports: No Symptoms Psychiatric: Reports: No Symptoms - General Info Date of Service: 05/22/20 - Patient Data Vital Signs - Most Recent: Last Vital Signs Temp 35.5 C L 05/22/20 07:14 Pulse 86 05/22/20 07:14 Resp 16 05/22/20 07:14 BP 117/68 05/22/20 07:14 Pulse Ox 98 05/22/20 07:14 Weight - Most Recent: 93.44 kg I&O - Last 24 Hours: Intake & Output 05/21/20 05/22/20 05/22/20 22:59 06:59 14:59 Intake Total 1999 Balance 1999 Med Orders - Current: Current Medications Acetaminophen (Acetaminophen 325 Mg Tab, 50 Tab Bulk Bottle) 325 - 650 mg PO Q4H PRN PRN Reason: Pain Last Admin: 05/20/20 10:52 Dose: 650 mg Documented by: Benzocaine (Benzocaine 20% Top Clemons 56 Gm Bottle) 0 gm TOP Q4H PRN PRN Reason: PAIN Calcium Carbonate/Glycine (Calcium Carbonate 500 Mg Tab.Chew) 1,000 mg PO Q2H PRN PRN Reason: Indigestion Diphenhydramine HCl (Diphenhydramine 50 Mg/Ml Sdv) 25 mg IVPUSH Q6H PRN PRN Reason: Itching Diphenhydramine HCl (Diphenhydramine 50 Mg/Ml Sdv) 50 mg IVPUSH Q6H PRN PRN Reason: Itching Docusate Sodium (Docusate Sodium 100 Mg Cap) 100 mg PO BID PRN PRN Reason: Constipation Last Admin: 05/21/20 09:29 Dose: 100 mg Documented by: Emollient Ointment (Lanolin 100% Cream 40 Gm Tube) 0 gm TOP ASDIRECTED PRN PRN Reason: Other Last Admin: 05/21/20 12:05 Dose: 40 gm Documented by: Ephedrine Sulfate (Ephedrine 50 Mg/Ml Sdv) 10 mg IVPUSH ASDIRECTED PRN PRN Reason: Hypotension Ferrous Sulfate (Ferrous Sulfate 325 Mg Tab) 325 mg PO BIDMEALS [facility] Last Admin: 05/21/20 16:36 Dose: 325 mg Documented by: Oxytocin/Sodium Chloride (Pitocin In Ns 20 Units/1,000 Ml) 20 unit in 1,000 mls @ 6 mls/hr IV TITRATE JOSE; Protocol Last Titration: 05/20/20 08:12 Dose: 7 munits/min, 21 mls/hr Documented by: Ropivacaine (Naropin 0.2%) 100 mls @ 12 mls/hr EPIDUR ASDIRECTED JOSE; Protocol Last Admin: 05/20/20 08:08 Dose: 12 mls/hr, 12 mls/hr Documented by: Oxytocin/Sodium Chloride (Pitocin In Ns 20 Units/1,000 Ml) 20 unit in 1,000 mls @ 999 mls/hr IV TITRATE JOSE; Protocol Last Admin: 05/20/20 09:50 Dose: 999 mls/hr, 999 mls/hr Documented by: Ibuprofen (Ibuprofen 200 Mg Tab, 24 Tab Bulk Bottle) 600 mg PO Q6H PRN PRN Reason: Pain Last Admin: 05/20/20 10:51 Dose: 600 mg Documented by: Naloxone HCl (Naloxone 0.4 Mg/Ml Sdv) 0.1 mg IVPUSH Q5M PRN PRN Reason: IF RESP RATE LESS THAN 6 Ondansetron HCl (Ondansetron 4 Mg/2 Ml Sdv) 4 mg IV Q4H PRN PRN Reason: Nausea/Vomiting Sodium Chloride (Sodium Chloride 0.9% 10 Ml Syringe) 10 ml FLUSH ASDIRECTED PRN PRN Reason: Keep Vein Open Witch Serenity (Witch Serenity Medicated Pads 100/Jar) 1 pad TOP ASDIRECTED PRN PRN Reason: PAIN Discontinued Medications Benzocaine (Benzocaine 20% Top Clemons 56 Gm Bottle) 0 gm TOP ONETIME ONE Stop: 05/20/20 13:04 Last Admin: 05/20/20 14:12 Dose: 1 spr Documented by: Carboprost Tromethamine (Carboprost Tromethamine 250 Mcg/1 Ml Amp) Confirm Administered Dose 250 mcg .ROUTE .STK-MED ONE Stop: 05/20/20 09:51 Last Admin: 05/20/20 10:59 Dose: Not Given Documented by: Carboprost Tromethamine (Carboprost Tromethamine 250 Mcg/1 Ml Amp) 250 mcg IM ONETIME ONE Stop: 05/20/20 10:19 Last Admin: 05/20/20 09:55 Dose: 250 mcg Documented by: Penicillin G Potassium 5 (millunits/ Sodium Chloride) 50 mls @ 100 mls/hr IV ONETIME ONE Stop: 05/19/20 12:59 Last Admin: 05/19/20 12:35 Dose: 100 mls/hr Documented by: Penicillin G Potassium 2.5 (millunits/ Sodium Chloride) 50 mls @ 100 mls/hr IV Q4H JOSE Stop: 05/20/20 12:00 Last Admin: 05/20/20 10:56 Dose: Not Given Documented by: Sodium Chloride (Normal Saline) 1,000 mls @ 999 mls/hr IV .BOLUS ONE Stop: 05/20/20 01:24 Last Admin: 05/20/20 01:43 Dose: 999 mls/hr Documented by: Ropivacaine (Naropin 0.2%) Confirm Administered Dose 100 mls @ as directed .ROUTE .STK-MED ONE Stop: 05/20/20 00:38 Sodium Chloride (Normal Saline) 250 mls @ 250 mls/hr IV ASDIRECTED [facility] Sodium Chloride (Normal Saline) 250 mls @ 999 mls/hr IV ASDIRECTED ONE Stop: 05/20/20 07:45 Last Admin: 05/20/20 07:15 Dose: 999 mls/hr Documented by: Lidocaine HCl (Lidocaine 1% 50 Ml Mdv) Confirm Administered Dose 50 ml .ROUTE .STK-MED ONE Stop: 05/20/20 10:01 Last Admin: 05/20/20 11:00 Dose: Not Given Documented by: Lidocaine HCl (Lidocaine 1% 50 Ml Mdv) 50 ml INJECT NOW STA Stop: 05/20/20 10:20 Last Admin: 05/20/20 11:00 Dose: 50 ml Documented by: Methylergonovine Maleate (Methylergonovine 0.2 Mg/1 Ml Amp) Confirm Administered Dose 0.2 mg .ROUTE .STK-MED ONE Stop: 05/20/20 09:50 Last Admin: 05/20/20 10:59 Dose: Not Given Documented by: Methylergonovine Maleate (Methylergonovine 0.2 Mg/1 Ml Amp) Confirm Administered Dose 0.2 mg .ROUTE .STK-MED ONE Stop: 05/20/20 09:51 Last Admin: 05/20/20 10:59 Dose: Not Given Documented by: Methylergonovine Maleate (Methylergonovine 0.2 Mg/1 Ml Amp) 0.2 mg IM NOW STA Stop: 05/20/20 10:19 Last Admin: 05/20/20 09:51 Dose: 0.2 mg Documented by: Misoprostol (Misoprostol 25 Mcg (1/4 Of 100 Mcg) Tab) 25 mcg PO ONETIME ONE Stop: 05/19/20 12:16 Last Admin: 05/19/20 12:05 Dose: 25 mcg Documented by: Misoprostol (Misoprostol 25 Mcg (1/4 Of 100 Mcg) Tab) 25 mcg PO ONETIME ONE Stop: 05/19/20 14:43 Last Admin: 05/19/20 14:52 Dose: 25 mcg Documented by: Misoprostol (Misoprostol 200 Mcg Tab) Confirm Administered Dose 200 mcg .ROUTE .STK-MED ONE Stop: 05/20/20 09:49 Last Admin: 05/20/20 10:59 Dose: Not Given Documented by: Misoprostol (Misoprostol 200 Mcg Tab) Confirm Administered Dose 800 mcg .ROUTE .STK-MED ONE Stop: 05/20/20 09:51 Last Admin: 05/20/20 11:00 Dose: Not Given Documented by: Misoprostol (Misoprostol 200 Mcg Tab) 800 mcg RECTAL NOW STA Stop: 05/20/20 10:18 Last Admin: 05/20/20 11:00 Dose: 800 mcg Documented by: Naloxone HCl (Naloxone 0.4 Mg/Ml Sdv) 0.1 mg IVPUSH ASDIRECTED PRN PRN Reason: Oversedation Sodium Chloride (Sodium Chloride 0.9% 10 Ml Syringe) 10 ml FLUSH ASDIRECTED PRN PRN Reason: Keep Vein Open Witch Serenity (Witch Serenity Medicated Pads 100/Jar) 1 pad TOP ONETIME ONE Stop: 05/20/20 13:04 Last Admin: 05/20/20 14:12 Dose: 1 pad Documented by: - Interaction Disposition, : in Room with Family Infant Interaction: Holding Infant Feeding: Breastfed ; Nursed Well Support Person: - Recovery Exam Fundal Tone: Firm, Boggy Fundal Level: 1 Fingerbreadths Below Umbilicus Fundal Placement: Midline Lochia Amount: Small Lochia Color: Rubra/Red Perineum Description: Intact, Minimal Bruising/Swelling Episiotomy/Laceration: Approximated Bladder Status: Voiding Urinary Elimination: Voided - Exam General: Alert, Oriented HEENT: Pupils Equal, Pupils Reactive, Mucous Membr. Moist/[place] Neck: Supple Lungs: Clear to Auscultation, Normal Respiratory Effort Cardiovascular: Regular Rate, Regular Rhythm, No Murmurs GI/Abdominal Exam: Normal Bowel Sounds, Soft, Non-Tender, No Distention, Pelvis Stable Extremities: Normal Inspection, Normal Range of Motion, Non-Tender, No Pedal Edema, Normal Capillary Refill Skin: Warm, Dry, Intact Neurological: No New Focal Deficit Psy/Mental Status: Alert, Normal Affect, Normal Mood - Problem List & Annotations (1) Group B streptococcal infection SNOMED Code(s): 882125004 Code(s): A49.1 - STREPTOCOCCAL INFECTION, UNSPECIFIED SITE Status: Acute Current Visit: Yes (2) Term SNOMED Code(s): 34963790 Code(s): Z34.90 - ENCNTR FOR SUPRVSN OF NORMAL , UNSP, UNSP TRIMESTER Status: Acute Current Visit: Yes (3) History of episiotomy SNOMED Code(s): 228798778 Code(s): Z98.890 - OTHER SPECIFIED POSTPROCEDURAL STATES Status: Acute Current Visit: Yes (4) Del w/ 2 deg lac-unsp SNOMED Code(s): 1353363 Code(s): O70.1 - SECOND DEGREE PERINEAL LACERATION DURING DELIVERY Status: Acute Current Visit: Yes (5) Normal vaginal delivery SNOMED Code(s): 51323529, 695311283 Code(s): O80 - ENCOUNTER FOR FULL-TERM UNCOMPLICATED DELIVERY Status: Acute Current Visit: Yes (6) started SNOMED Code(s): 030430208 Code(s): IXT1849 - Status: Acute Current Visit: Yes - Problem List Review Problem List Initiated/Reviewed/Updated: Yes - My Orders Last 24 Hours: My Active Orders 05/21/20 17:00 Ferrous Sulfate 325 mg PO BIDMEALS - Assessment Assessment:: 05/20/20 with of male infant at 0944 2nd degree episiotomy repaired, no extension PP hemorrhage of EBL 700 AVSS, not dizzy Up and moving, voided 05/21/20 PP day 1, doing well Bleeding is light and FF Pain controlled, perineal pain "not bad" Voiding without problems Declines dizziness or lightheadedness AVSS Hbg 10.4 yesterday afternoon and 9.4 this morning WBC elevated yesterday after delivery but are back down this morning to normal range for PP well 05/22/20 PP day 2, uncomplicated Bleeding light and FF going well Pain controlled No s/s of anemia No s/s of infection - Plan Plan:: 05/19/20 Assessment: Admit to L & D for SROM and early labor Cervix very posterior, nursing unable to reach Fluid clear at 41 1/7 with testing yesterday 12/04 GBS positive Plan: Limit cervical exams due to GBS Oral cytotec 25 mcg every two hours if needed based on monitoring strip Anticipate Nitrous oxide vs epidural Monitoring as needed with cytotec, otherwise intermittent 05/20/20 Routine cares support Anticipate 48 hour stay 05/21/20 Routine cares Perineal care support Anticipate discharge tomorrow 05/22/20 Discharge home today with baby Tub soaks at home Continue vitamin, no extra iron needed 6 week pp check in clinic
== END 2020-05-22 10:30 | disposition home or self-care (01) | DRG 560 ==
LOC: JP.OBCHECK 10:35 → JP.OB 11:55 → OBSVTOIN 05-20 09:44 → JP.MS 05-20 17:52
PROVIDERS: ADMIT Advanced Practice Midwife; ATTEND Advanced Practice Midwife
PROC: 10E0XZZ Delivery of Products of Conception, External Approach (ICD-10-PCS; principal; 2020-05-20)
PROC: 0W8NXZZ Division of Female Perineum, External Approach (ICD-10-PCS; 2020-05-20)
PROC: 3E0P7VZ Introduction of Hormone into Female Reproductive, Via Natural or Artificial Opening (ICD-10-PCS; 2020-05-20)
PROC: 3E0R3BZ Introduction of Anesthetic Agent into Spinal Canal, Percutaneous Approach (ICD-10-PCS; 2020-05-20)
PROC: 00HU03Z Insertion of Infusion Device into Spinal Canal, Open Approach (ICD-10-PCS; 2020-05-20)
DX: O99.824 Streptococcus B carrier state complicating childbirth (principal); O48.0 Post-term pregnancy; O69.1XX0 Labor and delivery complicated by cord around neck, with compression, not applicable or unspecified; Z3A.41 41 weeks gestation of pregnancy; Z37.0 Single live birth; Z20.822 Contact with and (suspected) exposure to COVID-19
CPT/HCPCS: 36415; 81001; 84112; 85025; 85027; 99211; A9270-GY; J2001; J2210; J2540; J2590; J2795; J7030; U0002

== ENCOUNTER 2021-08-24 07:31 | Inpatient (IN) | payer BC ==
[2021-08-24] MEDS: Lactated Ringers 1,000 ML IV SCH ×2 (10:05→13:03)
[2021-08-24] MEDS ORDERED: Methylergonovine 0.2 MG/1 ML Amp ONE (15:27)
[2021-08-24] MEDS ORDERED: Misoprostol 200 MCG Tab ONE ×2 (15:27→19:15)
[2021-08-24] MEDS ORDERED: Carboprost Tromethamine 250 MCG/1 ML Amp ONE (15:27)
[2021-08-24] MEDS ORDERED: Naloxone 0.4 MG/ML SDV IVPUSH PRN (15:39)
[2021-08-24] MEDS ORDERED: ePHEDrine 50 MG/ML SDV IVPUSH PRN (15:39)
[2021-08-24] MEDS ORDERED: diphenhydrAMINE 50 MG/ML SDV IVPUSH PRN ×2 (15:39)
[2021-08-24] MEDS ORDERED: Ropivacaine 100 ML ONE (15:44)
[2021-08-24] MEDS ORDERED: ePHEDrine 50 MG/ML SDV ONE (15:46)
[2021-08-24] MEDS ORDERED: Ropivacaine 100 ML EPIDUR SCH (17:00)
[2021-08-24] MEDS ORDERED: Lactated Ringers 500 ML IV ONE (17:40)
[2021-08-24] MEDS ORDERED: Misoprostol 50 MCG (1/2 of 100 MCG) Tab RECTAL ONE (19:15)
[2021-08-24] MEDS ORDERED: Sennosides 8.6 MG Tab PO PRN (19:40)
[2021-08-24] MEDS ORDERED: Witch Hazel Medicated Pads 100/Jar TOP PRN (19:40)
[2021-08-24] MEDS ORDERED: Benzocaine 20% Top Spray 56 GM Bottle TOP PRN (19:40)
[2021-08-24] MEDS ORDERED: Acetaminophen 500 MG Tab PO SCH (19:45)
[2021-08-24] MEDS ORDERED: Ibuprofen 800 MG Tab PO SCH (19:45)
[2021-08-24] MEDS ORDERED: Acetaminophen 325 MG Tab PO PRN ×2 (21:12→21:30)
[2021-08-24] MEDS: Ibuprofen 600 MG Tab PO PRN (22:19)
[2021-08-25] MEDS: Ibuprofen 600 MG Tab PO PRN (03:57)
[2021-08-25] MEDS ORDERED: Acetaminophen 325 MG Tab, 50 Tab Bulk Bottle PO PRN (07:11)
[2021-08-25] MEDS ORDERED: Ibuprofen 200 MG Tab, 24 Tab Bulk Bottle PO PRN (08:19)
[2021-08-25 16:52] VITALS: BP 107/60; PULSE 64
== END 2021-08-25 20:15 | disposition home or self-care (01) | DRG 560 ==
LOC: JP.OBCHECK 07:31 → JP.OB 07:32 → OBSVTOIN 19:40 → JP.MS 22:51
PROVIDERS: ADMIT Obstetrics & Gynecology; ATTEND Obstetrics & Gynecology
PROC: 10E0XZZ Delivery of Products of Conception, External Approach (ICD-10-PCS; principal; 2021-08-24)
PROC: 10907ZC Drainage of Amniotic Fluid, Therapeutic from Products of Conception, Via Natural or Artificial Opening (ICD-10-PCS; 2021-08-24)
PROC: 3E033VJ Introduction of Other Hormone into Peripheral Vein, Percutaneous Approach (ICD-10-PCS; 2021-08-24)
PROC: 0KQM0ZZ Repair Perineum Muscle, Open Approach (ICD-10-PCS; 2021-08-24)
PROC: 3E0R3BZ Introduction of Anesthetic Agent into Spinal Canal, Percutaneous Approach (ICD-10-PCS; 2021-08-24)
PROC: 00HU33Z Insertion of Infusion Device into Spinal Canal, Percutaneous Approach (ICD-10-PCS; 2021-08-24)
DX: O48.0 Post-term pregnancy (principal); Z37.0 Single live birth; Z3A.40 40 weeks gestation of pregnancy; O70.1 Second degree perineal laceration during delivery; Z20.822 Contact with and (suspected) exposure to COVID-19
CPT/HCPCS: 36415; 51702; 80305-QW; 81001; 85025; 85027; A9270-GY; J2590; J2795; J7120; U0002